=== PATIENT | male | born 1990 | race Caucasian/White ===

== ENCOUNTER 2024-02-27 03:30 | Outpatient (CLI) | payer BC, SELFPAY | END 2024-02-27 03:31 | disposition home or self-care (01) | LOC: AMB 03-15 02:16 | PROVIDERS: Visit Provider Family Medicine | DX: F10.129 Alcohol abuse with intoxication, unspecified (principal); R68.0 Hypothermia, not associated with low environmental temperature | CPT/HCPCS: A0425; A0427 ==

== ENCOUNTER 2024-02-27 04:14 | Emergency (ER) | payer BC, SELFPAY ==
[2024-02-27] VITALS (27 sets, daily range): BP systolic 116–143; BP diastolic 81–113; PULSE 96–114; RESP 14–16; TEMP 35.8–36.6; O2SAT 91–99
--- OUTSIDE RECORDS SUMMARY | 2024-02-27 04:16 | XMS_ITS | Clinical Summary ---
Author Organization [facility] Address [place], [place] [address] Care Team Providers Care Valve And Regulator Repairer Name Role Phone Pcp, No Primary Care Provider Unavailabl e Allergies No known active allergies Medications No known medications Immunizations Name Administration Dates Next Due Hepatitis B (Peds) 03/16/1995,10/15/1994, 995 Influenza, IIV3 (Age >=3 years) 01/12/2006,12/07 MMR 06/15/2001,1988 Meningococcal Vaccine (Menactra) 11/06/2006 Td (Age >=7 Years) 10/21/2004 Tdap 05/10/2015 Varicella Vaccine 05/20/1999 Social History Tobacco Use Types Packs/Day Years Used Date Smoking Tobacco: Never Tobacco Cessation:Counseling Given: Yes Alcohol Use Standard Drinks/Week Comments No 0 (1 standard drink = 0.6 oz pur e alcohol) Sex and Gender Information Value Date Recorded Sex Assigned at Not on file 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 Gender Identity Not on file Sexual Orientation Not on file Occupation Industry 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 Not on file Not on file Not on file Obstetrics History Last Filed Vital Signs Vital Sign Reading Time Taken Comments Blood Pressure 133/87 05/25/2015 12:32 PM CDT Pulse 68 05/25/2015 12:32 PM CDT Temperature 36.8 C (98.3 F) 05/10/2015 7:52 AM CDT Respiratory Rate - - Oxygen Saturation 96% 05/25/2015 12:32 PM CDT Inhaled Oxygen Concentration - - Weight 99.3 kg (219 lb) 05/25/2015 12:32 PM CDT Height 175 cm (5' 8.9) 05/25/2015 12:32 PM CDT Body Mass Index 32.44 05/25/2015 12:32 PM CDT Plan of Treatment Health Maintenance Due Date Last Done Comments HIV for age 15-65 11/30/2003 Hepatitis C screening for ag e 18-79 2006 BMI (ht and wt on same day) for age 18+ 05/24/2016 05/25/2015 Depression screening for age 12+ 08/06/2016 08/07/2015 COVID-19 vaccine series (2023- season) 2023 Influenza for age 9-49 10/25/2023 6, 12/07/2004 Lipids for age 35-44 11/30/2023 Tetanus booster 05/09/2025 05/10/2015, 10/21/2004 Tdap Completed 05/10/2015 Pneumococcal series for age 6-49 Aged Out No longer eligible b ased on patient's age to complete this topic Insurance [facility] Care Teams Valve And Regulator Repairer Relationship Specialty Start Date End Date Pcp, No . PCP - General 07/16/20
--- NOTE | 2024-02-27 04:25 | ED.GENADULT ---
HPI - General Adult General Time Seen by Provider: 04:15 Date Seen: 02/27/24 Chief complaint: Hypothermia Stated complaint: Hypothermia Time Seen by Provider: 02/27/24 04:25 Source: patient and EMS Mode of arrival: EMS Limitations: altered mental status (Intoxication) History of Present Illness HPI narrative: 33-year-old male brought in by ambulance for possible hypothermia. Patient was found outside covered in frozen vomit, per EMS was ?unresponsive? initially. Patient self has no complaints, admits to alcohol use today. Says he when out walk his dog. Related Data Allergies Allergy/AdvReac Type Severity Reaction Status Date / Time No Known Drug Allergies Allergy Verified 02/27/24 05:52 Exam Narrative: Exam Narrative: General: Well-developed and well-nourished, no acute distress Head: Atraumatic and normocephalic Eyes: Pupils are equal reactive, extraocular motions intact, conjunctiva clear ENT: External nose and ears are normal, posterior pharynx without erythema or exudate Neck: No midline cervical tenderness, full spontaneous range of motion the neck, trachea midline, no adenopathy Heart: Tachycardic rate and rhythm no murmurs or thrills Lungs: Clear to auscultation bilaterally without wheezes or crackles Abdomen: Soft, nontender, nondistended with active bowel sounds Musculoskeletal: No tenderness, deformity, or edema Neurologic: Awake, alert, slow to answer questions but answers appropriately, no gross focal neurologic deficits, cranial nerves intact as tested Psych: Mood and affect are appropriate Skin: No rashes Const: Vital Signs, click to edit/add: Vital Signs - 24 hr 02/27/24 04:19 02/27/24 04:23 02/27/24 04:27 Temperature 96.4 F L Pulse Rate 96 102 H Pulse Rate [Pulse Oximeter] 105 H Respiratory Rate 16 Blood Pressure 133/99 H Blood Pressure [Ri ght Upper Arm] 134/102 H Pulse Oximetry 95 93 95 Oxygen Delivery Me thod Room Air 02/27/24 04:30 02/27/24 04:31 02/27/24 04:42 Temperature 97.1 F L Pulse Rate 103 H 105 H Pulse Rate [Pulse Oximeter] Respiratory Rate Blood Pressure 143/113 H Blood Pressure [Ri ght Upper Arm] Pulse Oximetry 95 94 Oxygen Delivery Me thod 02/27/24 04:45 02/27/24 04:46 02/27/24 04:47 Temperature 97.8 F 97.6 F Pulse Rate 102 H 105 H Pulse Rate [Pulse Oximeter] Respiratory Rate Blood Pressure 140/101 H Blood Pressure [Ri ght Upper Arm] Pulse Oximetry 95 95 Oxygen Delivery Me thod 02/27/24 04:56 02/27/24 05:00 02/27/24 05:01 Temperature 97.5 F L Pulse Rate 109 H 110 H Pulse Rate [Pulse Oximeter] Respiratory Rate Blood Pressure 131/102 H Blood Pressure [Ri ght Upper Arm] Pulse Oximetry 95 96 Oxygen Delivery Me thod 02/27/24 05:18 02/27/24 05:20 02/27/24 05:30 Temperature Pulse Rate 106 H 103 H 103 H Pulse Rate [Pulse Oximeter] Respiratory Rate Blood Pressure 140/81 H Blood Pressure [Ri ght Upper Arm] Pulse Oximetry 98 96 91 Oxygen Delivery Me thod 02/27/24 05:35 02/27/24 05:54 02/27/24 05:56 Temperature 97.6 F Pulse Rate 105 H 107 H 108 H Pulse Rate [Pulse Oximeter] Respiratory Rate Blood Pressure 116/81 138/93 H Blood Pressure [Ri ght Upper Arm] Pulse Oximetry 94 94 97 Oxygen Delivery Me thod 02/27/24 06:00 02/27/24 06:01 02/27/24 06:15 Temperature Pulse Rate 104 H 101 H 105 H Pulse Rate [Pulse Oximeter] Respiratory Rate Blood Pressure 135/81 Blood Pressure [Ri ght Upper Arm] Pulse Oximetry 95 97 99 Oxygen Delivery Me thod 02/27/24 06:18 02/27/24 06:30 02/27/24 06:31 Temperature Pulse Rate 102 H 110 H 111 H Pulse Rate [Pulse Oximeter] Respiratory Rate Blood Pressure 116/84 138/113 H Blood Pressure [Ri ght Upper Arm] Pulse Oximetry 97 97 98 Oxygen Delivery Me thod 02/27/24 06:45 02/27/24 06:47 02/27/24 06:59 Temperature Pulse Rate 114 H 114 H Pulse Rate [Pulse Oximeter] 100 Respiratory Rate 14 Blood Pressure 135/98 H Blood Pressure [Ri ght Upper Arm] Pulse Oximetry 97 95 Oxygen Delivery Me thod Course Course ED Course: Patient seen and examined on EMS arrival as he was called as a code red. On arrival, patient is awake alert, oriented to person and place, answers questions appropriately. No external signs of head trauma. Hands are cool but torso and face warm, temperature 96.4?. Heart is tachycardic but regular, lungs are clear, no abdominal tenderness, no tenderness or deformity of the upper extremities, moves all extremities without pain. Labs ordered along with fluids, head CT given initial altered mentation and fall but no external signs of trauma. Reevaluation(s) Time of Reevaluation #1: 05:05 Reevaluation #1: Labs independently interpreted by me with leukocytosis, also elevated lactate 3.5, negative troponin. Chest x-ray read by me negative for acute findings. Suspect these findings are due to dehydration and acute stress, however cannot exclude sepsis in setting of hypothermia and tachycardia. CT scan chest, abdomen, pelvis ordered, blood cultures ordered. Will defer antibiotics for now. Time of Reevaluation #2: 05:25 Reevaluation #2: Labs independently interpreted by me with normal basic panel, normal CK. Time of Reevaluation #3: 06:03 Reevaluation #3: CT scan of the chest, abdomen, and pelvis is negative for acute findings. Blood alcohol level 0.3, patient able to stand independently at bedside. Urinalysis will performed. Leukocytosis and elevated lactate are likely related to stress and exposure, no evidence for acute infectious etiology for lab abnormalities. Vital Signs Vital signs: Initial Vital Signs Temperature 96.4 F L 02/27/24 04:19 Temperature Source Temporal Artery Scan 02/27/24 04:19 Pulse Rate 105 H 02/27/24 04:19 Respiratory Rate 16 02/27/24 04:19 Blood Pressure 134/102 H 02/27/24 04:19 Blood Pressure Mean 112 H 02/27/24 04:19 Blood Pressure Position Supine 02/27/24 04:19 Pulse Oximetry 95 02/27/24 04:19 Oxygen Delivery Method Room Air 02/27/24 04:19 Vital Signs Temperature 96.4 F L 02/27/24 04:19 Pulse Rate 105 H 02/27/24 04:19 Respiratory Rate 16 02/27/24 04:19 Blood Pressure 134/102 H 02/27/24 04:19 Pulse Oximetry 95 02/27/24 04:19 Oxygen Delivery Method Room Air 02/27/24 04:19 Temperature 97.6 F 01/04/25 05:56 Pulse Rate 100 02/27/24 06:59 Respiratory Rate 14 02/27/24 06:59 Blood Pressure 135/98 H 02/27/24 06:47 Pulse Oximetry 95 02/27/24 06:47 Oxygen Delivery Method Room Air 02/27/24 04:19 Medications Administered Medications: Discontinued Medications Generic Name Dose Route Start Last Admin Trade Name Freq PRN Reason Stop Dose Admin Sodium Chloride 1,000 mls @ 1,000 mls/hr 02/27/24 04:30 02/27/24 06:00 0.9 % Sodium Chloride 1000 Ml IV 02/27/24 05:29 Infused .Q1H JUSTIN Infusion Sodium Chloride 500 mls @ 1,000 mls/hr 02/27/24 05:10 02/27/24 06:35 0.9 % Sodium Chloride 500 Ml IV 02/27/24 05:39 Infused .Q30M JUSTIN Infusion Medical Decision Making Lab Data Labs: Lab Results 02/27/24 02/27/24 02/27/24 Range/Units 04:29 04:36 05:09 WBC 18.76 H (4.50-11.00) K/uL RBC 5.04 (4.30-5.90) m/uL Hgb 17.2 (13.5-17.5) gm/dL Hct 49.9 (37.0-53.0) % MCV 99 (80-100) fL MCH 34 (26-34) pg MCHC 35 (32-36) gm/dL RDW Coeff of Litzy 13.1 (11.5-15.5) % Plt Count 177 (140-440) K/uL Neut % (Auto) 85.1 H (42.0-72.0) % Lymph % (Auto) 9.0 L (20-44) % [place] % (Auto) 4.9 (0.0-11.0) % Eos % (Auto) 0.4 (0.0-7.0) % Baso % (Auto) 0.3 (0.0-3.0) % Neut # (Auto) 16.00 H (1.7-7.0) K/uL Lymph # (Auto) 1.70 (0.90-2.90) K/uL [place] # (Auto) 0.90 (0.00-0.90) K/UL Eos # (Auto) 0.10 (0.00-0.50) K/uL Baso # (Auto) 0.10 (0.00-0.30) K/uL Abs Immat Gran (auto) 0.10 (0.00-0.30) K/uL Imm/Tot Granulo (auto) 0.3 % INR 0.88 L (0.91-1.10) Sodium 141 (135-149) mmol/L Potassium 4.6 (3.6-5.1) mmol/L Chloride 108 (96-114) mmol/L Carbon Dioxide 19 L (20-32) mmol/L Anion Gap 14 (7-15) mEq/L BUN 16 (5-24) mg/dL Creatinine 0.7 (0.5-1.5) mg/dL Estimated GFR 123 ml/min Glucose 115 (60-115) mg/dL Lactate 3.5 H (0.5-1.9) mmol/L Calcium 8.0 L (8.4-10.6) mg/dL Magnesium 2.0 (1.5-2.6) mg/dL Total Creatine Kinase 101 (54-186) U/L Procalcitonin 0.08 (<0.50) ng/mL Urine Color (Yellow) Urine Appearance (Clear) Urine pH (5.0-8.5) Ur Specific [place] (1.000-1.030) Urine Protein (Negative) Urine Glucose (UA) (Negative) Urine Ketones (Negative) Urine Blood (Negative) Urine Nitrite (Negative) Urine Bilirubin (Negative) Urine Urobilinogen (0.2-1.0) Ur Leukocyte Esterase (Negative) Urine RBC (0-2) Urine WBC (0-5) Ur Squamous Epith Cells (None-Few) Urine Bacteria (None) Urine Opiates Screen (Negative) Ur Oxycodone Screen (Negative) Urine Methadone Screen (Negative) Ur Barbiturates Screen (Negative) U Tricyclic Antidepress (Negative) Ur Phencyclidine Scrn (Negative) Ur Amphetamines Screen (Negative) U Methamphetamines Scrn (Negative) U Benzodiazepines Scrn (Negative) Urine Cocaine Screen (Negative) U Marijuana (THC) Screen (Negative) Ur Drug Screen Comment Ethyl Alcohol 0.30 H (0.01-0.03) % Lab Acknowledgement Test Added POC Troponin I 0.00 L (0.01-0.04) ng/ml 02/27/24 02/27/24 Range/Units 06:05 07:23 WBC (4.50-11.00) K/uL RBC (4.30-5.90) m/uL Hgb (13.5-17.5) gm/dL Hct (37.0-53.0) % MCV (80-100) fL MCH (26-34) pg MCHC (32-36) gm/dL RDW Coeff of Litzy (11.5-15.5) % Plt Count (140-440) K/uL Neut % (Auto) (42.0-72.0) % Lymph % (Auto) (20-44) % [place] % (Auto) (0.0-11.0) % Eos % (Auto) (0.0-7.0) % Baso % (Auto) (0.0-3.0) % Neut # (Auto) (1.7-7.0) K/uL Lymph # (Auto) (0.90-2.90) K/uL [place] # (Auto) (0.00-0.90) K/UL Eos # (Auto) (0.00-0.50) K/uL Baso # (Auto) (0.00-0.30) K/uL Abs Immat Gran (auto) (0.00-0.30) K/uL Imm/Tot Granulo (auto) % INR (0.91-1.10) Sodium (135-149) mmol/L Potassium (3.6-5.1) mmol/L Chloride (96-114) mmol/L Carbon Dioxide (20-32) mmol/L Anion Gap (7-15) mEq/L BUN (5-24) mg/dL Creatinine (0.5-1.5) mg/dL Estimated GFR ml/min Glucose (60-115) mg/dL Lactate 2.3 H (0.5-1.9) mmol/L Calcium (8.4-10.6) mg/dL Magnesium (1.5-2.6) mg/dL Total Creatine Kinase (54-186) U/L Procalcitonin (<0.50) ng/mL Urine Color Yellow (Yellow) Urine Appearance Clear (Clear) Urine pH 5.5 (5.0-8.5) Ur Specific [place] <= 1.005 (1.000-1.030) Urine Protein Negative (Negative) Urine Glucose (UA) Negative (Negative) Urine Ketones Negative (Negative) Urine Blood Negative (Negative) Urine Nitrite Negative (Negative) Urine Bilirubin Negative (Negative) Urine Urobilinogen 0.2 (0.2-1.0) Ur Leukocyte Esterase Negative (Negative) Urine RBC 0-2 (0-2) Urine WBC 0-2 (0-5) Ur Squamous Epith Cells None (None-Few) Urine Bacteria None (None) Urine Opiates Screen Negative (Negative) Ur Oxycodone Screen Negative (Negative) Urine Methadone Screen Negative (Negative) Ur Barbiturates Screen Negative (Negative) U Tricyclic Antidepress Negative (Negative) Ur Phencyclidine Scrn Negative (Negative) Ur Amphetamines Screen Negative (Negative) U Methamphetamines Scrn Negative (Negative) U Benzodiazepines Scrn Negative (Negative) Urine Cocaine Screen Negative (Negative) U Marijuana (THC) Screen Negative (Negative) Ur Drug Screen Comment See Note Ethyl Alcohol (0.01-0.03) % Lab Acknowledgement POC Troponin I (0.01-0.04) ng/ml Discharge Plan Discharge Clinical Impression: Acute alcohol intoxication, Cold exposure, Leukocytosis Patient Disposition: Home w/ Parent or Adult Instructions: Alcohol Intoxication (DC), Leukocytosis (ED) Additional Instructions: Lots of non alcohol fluids and rest today Do not drive or at least 12 hours Activity Level: Activity as Tolerated Discharge Diet: Regular Follow Up/Referrals: Provider,Not a Local [Primary Care Provider] - Stand Alone Forms: NERITES Info Instructions
--- NOTE | 2024-02-27 04:29 | CRLHL7_ITS ---
For Patients: As a result of the Cures Act, medical imaging exams and procedure reports are released immediately into your electronic medical record. You may view this report before your referring provider. If you have questions, please contact your health care provider. INDICATION: Fall. Altered mental status. TECHNIQUE: CT head without contrast. COMPARISON: None. FINDINGS: There is no mass effect or midline shift. No hydrocephalus. No CT evidence of acute hemorrhage or infarction. No abnormal extra-axial fluid collection. Bone windows show no acute calvarial fracture. Paranasal sinuses and orbits as imaged are unremarkable. IMPRESSION: No acute intracranial abnormality. Dictated by Carlos Enrique Rascon MD @ 02/27/2024 6:15:52 AM Please note that all CT scans at this facility use dose modulation, iterative reconstruction, and/or weight-based dosing when appropriate to reduce radiation dose to as low as reasonably achievable. Dictated by: Carlos Enrique Rascon MD @ 02/27/2024 06:16:00 (Electronically Signed)
--- NOTE | 2024-02-27 04:30 | CRLHL7_ITS ---
For Patients: As a result of the Cures Act, medical imaging exams and procedure reports are released immediately into your electronic medical record. You may view this report before your referring provider. If you have questions, please contact your health care provider. INDICATION: Emesis. Altered mental status. Possible aspiration. TECHNIQUE: Chest 1 portable view. COMPARISON: None. FINDINGS: No pneumothorax or pleural effusion. Lungs are clear. Cardiac and mediastinal contours are within normal limits. Upper abdomen and osseous structures as imaged show no acute abnormality. IMPRESSION: No evidence of acute cardiopulmonary disease. Dictated by Carlos Enrique Rascon MD @ 02/27/2024 5:18:03 AM (Electronically Signed)
[2024-02-27] MEDS: 0.9 % SODIUM CHLORIDE 1000 ml 1,000 ML IV (04:36)
[2024-02-27 04:37] LABS: Lactate* 3.5 mmol/L (0.5-1.9)
[2024-02-27 04:39] LABS: Basophils Percent Auto 0.3 % (0.0-3.0); Eosinophils Percent Auto 0.4 % (0.0-7.0); Hematocrit 49.9 % (37.0-53.0); Hemoglobin* 17.2 gm/dL (13.5-17.5); Immature Granulocytes Pct Auto 0.3 %; Mean Corpuscular HGB Conc 35 gm/dL (32-36); Mean Corpuscular Hemoglobin 34 pg (26-34); Mean Corpuscular Volume 99 fL (80-100); Monocytes Percent Auto 4.9 % (0.0-11.0); Neutrophils Percent Auto 85.1 % (42.0-72.0); Platelet Count* 177 K/uL (140-440); RDW Coefficient of Variation % 13.1 % (11.5-15.5); Red Blood Count 5.04 m/uL (4.30-5.90); White Blood Count* 18.76 K/uL (4.50-11.00)
--- OUTSIDE RECORDS SUMMARY | 2024-02-27 04:46 | XMS_ITS | Clinical Summary ---
Author Organization [facility] Address [address] [address] Phone Care Team Providers Care Hand Binder Cutter Name Role Phone Unavailable Primary Care Provider Unavailabl e Allergies No known active allergies Medications No known medications Active Problems No known active problems Social History Tobacco Use Types Packs/Day Years Used Date Smoking Tobacco: Former Cigarettes Tobacco Cessation:Counseling Given: Not Answered PHQ-2 Answer Date Recorded PHQ-2 Total 0 09/25/2023 Sex and Gender Information Value Date Recorded Sex Assigned at Not on file Legal Sex Male 12:43 PM CDT Gender Identity Not on file Sexual Orientation Not on file Obstetrics History Last Filed Vital Signs Vital Sign Reading Time Taken Comments Blood Pressure 135/83 09/25/2023 1:11 PM CDT Pulse 69 09/25/2023 1:11 PM CDT Temperature 36.6 C (97.8 F) 09/25/2023 1:11 PM CDT Respiratory Rate 16 09/25/2023 1:11 PM CDT Oxygen Saturation 98% 09/25/2023 1:11 PM CDT Inhaled Oxygen Concentration - - Weight 107.2 kg (236 lb 5.3 oz) 09/25/2023 1:11 PM CDT Height - - Body Mass Index - - Plan of Treatment Health Maintenance Due Date Last Done Comments Hepatitis B Vaccine (Standin g Order) (1 of 3 - 19+ 3-dose series) 11/30/2007 PERTUSSIS (Standing Order) 11/30/2007 TETANUS (Standing Order) 11/30/2007 COVID-19 Vaccine (2023-2 5 season) 2023 Influenza Vaccine Seasonal (Standing Order) (#1) 2023 HPV Vaccine (Standing Order) Aged Out No longer eligible based on patient's age to complete this topic Pneumococcal/PCV20 Vaccine: Pediatrics (2-5 yrs) and At-Risk Patients (6-64 yrs) (Standing Order) Aged Out No longer eligible b ased on patient's age to complete this topic Insurance * Guarantor: [employer] Account Type Relation to Patient Date of Phone Billing Address Personal/Family Self 1990 [address] [place] [address] [facility] OTHER STATE * Guarantor: [employer] Account Type Relation to Patient Date of Phone Billing Address Personal/Family Self 1990 [address] [place] [address]
--- OUTSIDE RECORDS SUMMARY | 2024-02-27 04:46 | XMS_ITS | Clinical Summary ---
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 PCP - General 07/16/20
[2024-02-27 04:57] LABS: Slide Review Reflex No
[2024-02-27 05:00] LABS: Chloride* 108 mmol/L (96-114); Potassium* 4.6 mmol/L (3.6-5.1); Sodium* 141 mmol/L (135-149)
[2024-02-27 05:03] LABS: Anion Gap 14 mEq/L (7-15); Blood Urea Nitrogen* 16 mg/dL (5-24); Carbon Dioxide* 19 mmol/L (20-32); Creatine Kinase* 101 U/L (54-186); Creatinine* 0.7 mg/dL (0.5-1.5); Estimated Glomerular Filt Rate 123 ml/min; Glucose* 115 mg/dL (60-115); INR 0.88 (0.91-1.10); Prothrombin Time 12.4 Seconds
--- NOTE | 2024-02-27 05:08 | CRLHL7_ITS ---
For Patients: As a result of the Century Cures Act, medical imaging exams and procedure reports are released immediately into your electronic medical record. You may view this report before your referring provider. If you have questions, please contact your health care provider. INDICATION: Found down. Altered. SIRS. TECHNIQUE: CT chest, abdomen and pelvis acquired with 100 cc of Isovue 370 IV contrast. COMPARISON: None. FINDINGS: CHEST: Cardiovascular structures: Thoracic aorta and main pulmonary arteries are normal in caliber. Heart size is within normal limits. Mediastinum and bill: No pathologic lymphadenopathy. Lungs: No pneumothorax. Central airways are patent. Mild emphysema. Lungs are otherwise clear. Pleura and pericardium: No effusions. Chest wall and axilla: Unremarkable. ABDOMEN AND PELVIS: Liver: Fatty change. No focal lesion. Spleen: Unremarkable. Pancreas: Unremarkable. Gallbladder and bile ducts: No calcified stones or biliary ductal dilatation. Kidneys: Unremarkable. Adrenal glands: Unremarkable. GI tract: No obstruction or focal inflammatory changes. Normal appendix. Minimal sigmoid diverticulosis without evidence of acute diverticulitis. No free air or free fluid. Lymph nodes: No pathologic lymphadenopathy. Vascular structures: Unremarkable. Pelvic Organs: Distended bladder, without definite cause. Bladder as imaged is otherwise unremarkable. Bones: No acute or suspicious osseous abnormality. IMPRESSION: 1. No acute abnormality in the chest, abdomen or pelvis. 2. Fatty change of the liver. 3. Distended urinary bladder. Dictated by Carlos Enrique Rascon MD @ 02/27/2024 6:48:34 AM Please note that all CT scans at this facility use dose modulation, iterative reconstruction, and/or weight-based dosing when appropriate to reduce radiation dose to as low as reasonably achievable. Dictated by: Carlos Enrique Rascon MD @ 02/27/2024 06:48:46 (Electronically Signed)
--- NOTE | 2024-02-27 05:13 | PC.NURSE ---
0420 pt BIBA. Bindu hugger placed, warm fluid rapid infuser after new iv started secondary to EMS dislodging theirs. warming overhead lights on. Pt clothes cut off prior. MD at BS upon arrival. Toes and fingers very cool to touch but with good distal pulses. No visual trauma noted. Pt awake and states he has to pee.
[2024-02-27] MEDS: 0.9 % SODIUM CHLORIDE 500 ML 500 ML 1000 ML IV (06:00)
[2024-02-27 06:07] LABS: Appearance Urine Clear (Clear); Bilirubin Urine Negative (Negative); Blood Urine Negative (Negative); Color Urine Yellow (Yellow); Glucose Urine Negative (Negative); Ketones Urine Negative (Negative); Leukocyte Esterase Urine Negative (Negative); Nitrite Urine Negative (Negative); Protein Urine Negative (Negative); Specific Gravity Urine <= 1.005 (1.000-1.030); Urobilinogen Urine 0.2 (0.2-1.0); pH Urine 5.5 (5.0-8.5)
[2024-02-27 06:09] LABS: RBC Urine 0-2 (0-2); WBC Urine 0-2 (0-5)
[2024-02-27 06:10] LABS: Procalcitonin* 0.08 ng/mL (<0.50)
[2024-02-27 06:18] LABS: Amphetamine Screen Urine Negative (Negative); Barbiturate Screen Urine Negative (Negative); Benzodiazepines Screen Urine Negative (Negative); Cannabinoid Screen Urine Negative (Negative); Cocaine Screen Urine Negative (Negative); Methadone Screen Urine Negative (Negative); Methamphetamines Screen Urine Negative (Negative); Opiate Screen Urine Negative (Negative); Oxycodone Screen Urine Negative (Negative); Phencyclidine Screen Urine Negative (Negative); Tricyclic Antidepressant Urine Negative (Negative)
[2024-02-27 07:27] LABS: Lactate* 2.3 mmol/L (0.5-1.9)
== END 2024-02-27 07:53 | disposition home or self-care (01) ==
PROVIDERS: Emergency Provider Family Medicine
DX: F10.129 Alcohol abuse with intoxication, unspecified (principal); T69.9XXA Effect of reduced temperature, unspecified, initial encounter; D72.829 Elevated white blood cell count, unspecified
CPT/HCPCS: 36415; 70450; 71045; 71260; 74177; 80048; 80306; 81001; 82077; 82550; 83605; 83735; 84145; 84484; 85025; 85610; 87040; 93005; 96360; 99284; 99285; 99291; J7030; Q9967